=== PATIENT | female | born 1980 | race African-American/Black ===

== ENCOUNTER → 2016-10-26 | Outpatient (CLI) | payer OTHER ==
[2016-07-31 18:01] VITALS: BP 111/71
--- NOTE | 2016-10-27 07:49 | US ---
HISTORY: Bilateral axillary masses Study: Ultrasound axial Iae Comparison: None Technique: Multiple grayscale sonographic images were obtained. Findings: Imaging was focused to the right than left axilla. In the right axilla there is an ovoid, slightly l obular, hyperechoic mass measuring 2.3 by 4.3 by 4.8 centimeters peer E in the left axilla there is an oblong slightly lobular slightly hyperechoic mass measuring 2.5 x 3.6 x 4.2 centimeters. These ma sses could represent lipoma or enlarged lymph nodes. Other diagnoses are possible. Clinical correlat ion should determine the need for tissue sampling. Chest CT may be of further diagnostic value. IMPRESSION: Bilateral axillary masses as described above which may represent adenopathy or lipoma 's however oth er diagnoses are possible. See recommendation as above Reported By:
== END ==
LOC: RAD 09:28
PROVIDERS: ATTEND Student in an Organized Health Care Education/Training Program
DX: L02.411 Cutaneous abscess of right axilla (principal); L02.412 Cutaneous abscess of left axilla

== ENCOUNTER → 2016-11-01 | Day surgery (SDC) | payer OTHER ==
[~2016-11-01] MED LIST: ANCEF VIAL 1 GM ONE; DIPRIVAN VIAL ONE; FENTANYL INJ 100 mcg ONE; LR 1000 ML IV 1,000 ML IV ONE; MARCAINE 0.25% WITH EPI IJ ONE; NS 50 ML IV + SPIKE MINIBAG* 50 ML IV ONE; NS IRRIGATION 1000 ML 1,000 ML IR ONE; VERSED ONE; XYLOCAINE-MPF 1% ONE
[2016-11-01 09:51] LABS: SERUM PREGNANCY TEST, QUAL NEGATIVE <10 mIU/mL
[2016-11-01 13:56] VITALS: BP 106/64
== END | disposition home or self-care (01) | DRG 572 ==
LOC: SURG1 07:35
PROVIDERS: ATTEND Student in an Organized Health Care Education/Training Program
PROC: 0HB8XZZ Excision of Buttock Skin, External Approach (ICD-10-PCS; principal; 2016-11-01 08:30)
DX: D17.79 Benign lipomatous neoplasm of other sites (principal)
CPT/HCPCS: 36415; 84703; A4222; S0020; J0690; J2250; J3010; J3490; J7120

== ENCOUNTER → 2016-11-13 | Outpatient (CLI) | payer OTHER ==
[2016-11-01 13:56] VITALS: BP 106/64
--- NOTE | 2016-11-13 16:42 | CT ---
STUDY: CT PARANASAL SINUSES WITHOUT CONTRAST HISTORY: Sinusitis. Right eye redness and pressure. Comparison: None. Technique: Multiple axial images of the paranasal sinuses were obtained without the administration o f IV contrast. Coronal and sagittal reformats were performed and reviewed. Automated exposure contr ol (AEC) was utilized to adjust the MA and/or kV. Findings: Axial images: Both maxillary sinuses, the sphenoid sinus, ethmoid air cells, frontal recesses, and f rontal sinus are predominately clear. No air-fluid levels are identified. There is no evidence of os teoneogenesis. The retro antral fat is clear. The nasal cavity is within normal limits. There is christianne al septal deviation to the left. The nasal bone is intact. Both orbits are normal in appearance. The re is no evidence of periorbital or intraconal fat stranding. Reformatted images: The ethmoid roofs are slightly higher on the left than the right. The lamina pap yracea is intact bilaterally. There is no evidence of orbital blowout. The ostiomeatal units are pre dominantly clear. No signficant odontogenic abnormality is identified. Mastoid air cells and middle ear cavities are predominately clear. IMPRESSION: 1. No evidence of acute or chronic sinusitis at this time. 2. Normal appearing mastoid air cells and middle ear cavities bilaterally. Reported By:
== END ==
LOC: RAD 15:02
PROVIDERS: ATTEND Otolaryngology
DX: J32.8 Other chronic sinusitis (principal)
CPT/HCPCS: 70486

== ENCOUNTER 2017-03-15 15:45 | Emergency (ER) | payer OTHER ==
[2017-03-15 15:59] VITALS: BP 122/75; BMI 29.5
--- NOTE | 2017-03-15 16:26 | DR.CP ---
HPI - Time Seen Time seen: 16:20 - PCP Primary Care Physician: LISETTE SAUNDERS, - Complaint Chief Complaint Doctor Comments: Patient diagnosed with reflex sympathetic dystrophy. She was seen by physician and was given lumbar injections yesterday now c/o of chest wall pain Chief Complaint:: PT C/O CHEST PAINS THAT STARTED LASTNIGHT OFF AND ON MID STERNUM... - Source History Provided: Patient - Mode of Arrival Mode of Arrival: Ambulatory - Timing Onset of Chief Complaint: 03/14/17 - Location Chest Pain Radiation Location: None - Associated Signs and Symptoms Associated Signs and Symptoms: Shortness of Breath PMH - PMH Past Medical History: No Past Medical History: Headaches Past Surgical History: Yes Surgical History: Tonsillectomy Past Surgical History Comment: LYPOMA REMOVED . - Family History History of Family Medical Conditions: No Family Medical History: Hypertension - Social History Does patient currently use any type of tobacco product: No Have you used tobacco products in the last 12 months: No Type of Tobacco Use: None Does any household member use tobacco: No Alcohol Use: None Do you use any recreational Drugs:: No Lives With: Family Lives Where: Home - infectious screening In the last 2 months have you had wt loss of >10#?: NO Have you had fever, night sweats or hemotysis?: No Have you traveled outside the country in the last 6 months?: No Isolation: Standard ROS - Review of Systems Constitutional: negative: Diaphoresis Eyes: No Symptoms Reported ENTM: No Symptoms Reported Respiratoy: No Symptoms Reported Cardiovascular: No Symptoms Reported Gastrointestinal/Abdominal: No Symptoms Reported Genitourinary: No Symptoms Reported Neurological: No Symptoms Reported Musculoskeletal: No Symptoms Reported Integumentary: No Symptoms Reported Hematologic/Lymphatic: No Symptoms Reported Endocrine: No Symptoms Reported Psychiatric: No Symptoms Reported All Other Systems: Reviewed and Negative PE - Vitals Vitals: Temperature 98.5 F Pulse Rate 122 Respiratory Rate 18 Blood Pressure [Right Arm] 111/71 Blood Pressure 122/75 O2 Sat by Pulse Oximetry 99 - General Limitations: No Limitations General Appearance: Alert, In No Apparent Distress - Head Head Exam: Normal Inspection, Atraumatic - Eyes Eye exam: Normal Appearance, PERRL - ENT ENT Exam: Normal Exam - Chest Chest Inspection: Normal Inspection - Respiratory Respiratory Exam: Normal Lung Sounds Bilat Respiratory Exam: Bilateral Clear to Auscultation - Cardiovascular Cardiovascular Exam: Regular Rate, Normal Rhythm Pulse: Normal, Radial Edema: Normal - Abdominal Exam Abdominal Exam: Normal Inspection Abdominal Tenderness: negative: RUQ, RLQ, LUQ, LLQ, Epigastrium, Suprapubic, Diffuse, Mild, Moderate, Severe, Other - Extremities Extremities Exam: Normal Inspection - Back Back Exam: Tenderness - Neurologic Neurological Exam: Alert, Oriented X3, CN II-XII Intact - Psychiatric Psychiatric Exam: Normal Affect, Normal Mood - Skin Skin Exam: Warm, Dry, Intact ROR - Labs Reviewed Result Diagrams: 03/15/17 16:48 03/15/17 16:48 Laboratory: WBC 10.0 X10^3/uL (3.6-10.0) 03/15/17 16:48 RBC 4.46 X10^6/uL (3.5-5.4) 03/15/17 16:48 Hgb 13.0 g/dL (12.0-16.0) 03/15/17 16:48 Hct 38.7 % (36.0-47.0) 03/15/17 16:48 MCV 86.7 fL (80.0-100.0) 03/15/17 16:48 MCH 29.2 pg (27.0-34.0) 03/15/17 16:48 MCHC 33.6 g/dL (33.0-35.0) 03/15/17 16:48 RDW 14.0 % (11.6-16.5) 03/15/17 16:48 Plt Count 325 X10^3/uL (150.0-450.0) 03/15/17 16:48 MPV 7.6 fL (7.4-11.0) 03/15/17 16:48 Neut % 80.2 % (42.0-75.0) H 03/15/17 16:48 Lymph % 12.6 % (21.0-51.0) L 03/15/17 16:48 Sunflower % 6.3 % (0.0-13.0) 03/15/17 16:48 Eos % 0.6 % (0.9-2.9) L 03/15/17 16:48 Baso % 0.3 % (0.2-1.0) 03/15/17 16:48 Neut # 8.0 x10^3/uL (2.2-4.8) H 03/15/17 16:48 Lymph # 1.3 X10^3/uL (1.3-2.9) 03/15/17 16:48 Sunflower # 0.6 x10^3/uL (0.3-0.8) 03/15/17 16:48 Eos # 0.1 x10^3/uL (0.0-0.2) 03/15/17 16:48 Baso # 0.0 X10^3/uL (0.0-0.1) 03/15/17 16:48 Absolute Nucleated RBC 0.0 /100WBC 03/15/17 16:48 Sodium 141 mmol/L (136-145) 03/15/17 16:48 Corrected Sodium TNP 03/15/17 16:48 Potassium 3.8 mmol/L (3.5-5.1) 03/15/17 16:48 Chloride 106 mmol/L (98-107) 03/15/17 16:48 Carbon Dioxide 28.4 mmol/L (21-32) 03/15/17 16:48 BUN 7 mg/dL (7-18) 03/15/17 16:48 Creatinine 0.97 mg/dL (0.55-1.02) 03/15/17 16:48 Est GFR (MDRD) Af Amer > 60 (>60) 03/15/17 16:48 Est GFR (MDRD) Non-Af > 60 (>60) 03/15/17 16:48 Glucose 107 mg/dL (65-99) H 03/15/17 16:48 Calcium 9.7 mg/dL (8.5-10.1) 03/15/17 16:48 Corrected Calcium TNP 03/15/17 16:48 Total Bilirubin 0.40 mg/dL (0.2-1.0) 03/15/17 16:48 AST 13 Units/L (15-37) L 03/15/17 16:48 ALT 22 Units/L (12-78) 03/15/17 16:48 Alkaline Phosphatase 55 Units/L (46-116) 03/15/17 16:48 Creatine Kinase 94 Units/L (26-192) 03/15/17 16:27 CK-MB (CK-2) < 1.0 ng/mL (0-4.0) 03/15/17 16:27 CK/CKMB % Calc 1.1 % (<4) 03/15/17 16:27 Troponin I < 0.02 ng/mL (0-1.5) 03/15/17 16:27 Total Protein 8.1 g/dL (6.4-8.2) 03/15/17 16:48 Albumin 3.7 g/dL (3.4-5.0) 03/15/17 16:48 Globulin 4.4 g/dL (2.5-4.5) 03/15/17 16:48 Albumin/Globulin Ratio 0.8 Ratio (1.1-2.1) L 03/15/17 16:48 - Other Results Comments: cardiacs negative - XRAY XRAY Interpreted by: Radiologist (chest: normal) - Diagnosis Discharge Problem: Reflex sympathetic dystrophy of both upper extremities - Discharge Plan Condition: Stable - Follow ups/Referrals Follow ups/Referrals: JACINTA SAUNDERS [Primary Care Provider] - 3 days - Instructions
[2017-03-15 16:54] LABS: BASOPHILS % (AUTO) 0.3 % (0.2-1.0); EOSINOPHILS # (AUTO) 0.1 x10^3/uL (0.0-0.2); EOSINOPHILS % (AUTO) 0.6 % (0.9-2.9); HEMATOCRIT 38.7 % (36.0-47.0); LYMPHOCYTES # (AUTO) 1.3 X10^3/uL (1.3-2.9); LYMPHOCYTES % (AUTO) 12.6 % (21.0-51.0); MEAN CORPUSCULAR HEMOGLOBIN 29.2 pg (27.0-34.0); MEAN CORPUSCULAR HGB CONC 33.6 g/dL (33.0-35.0); MEAN CORPUSCULAR VOLUME 86.7 fL (80.0-100.0); MEAN PLATELET VOLUME 7.6 fL (7.4-11.0); MONOCYTES # (AUTO) 0.6 x10^3/uL (0.3-0.8); MONOCYTES % (AUTO) 6.3 % (0.0-13.0); NEUTROPHILS % (AUTO) 80.2 % (42.0-75.0); PLATELET COUNT 325 X10^3/uL (150.0-450.0); RED BLOOD COUNT 4.46 X10^6/uL (3.5-5.4)
[2017-03-15 17:09] LABS: ALANINE AMINOTRANSFERASE 22 Units/L (12-78); ALBUMIN 3.7 g/dL (3.4-5.0); ALKALINE PHOSPHATASE 55 Units/L (46-116); ASPARTATE AMINO TRANSFERASE 13 Units/L (15-37); BLOOD UREA NITROGEN 7 mg/dL (7-18); CALCIUM 9.7 mg/dL (8.5-10.1); CARBON DIOXIDE 28.4 mmol/L (21-32); CHLORIDE 106 mmol/L (98-107); CREATININE 0.97 mg/dL (0.55-1.02); SODIUM 141 mmol/L (136-145); TOTAL PROTEIN 8.1 g/dL (6.4-8.2); eGFR BLACK RACES > 60 (>60); eGFR NON BLACK RACES > 60 (>60)
[2017-03-15 18:12] LABS: CKMB % 1.1 % (<4); CREATINE KINASE 94 Units/L (26-192); CREATINE KINASE MB < 1.0 ng/mL (0-4.0); TROPONIN I < 0.02 ng/mL (0-1.5)
--- NOTE | 2017-03-15 18:27 | RAD ---
HISTORY: 37-year-old female with chest pain. Study: Frontal view of the chest. Comparison: Chest radiograph July 31, 2016 Findings: The trachea is midline. The cardiac silhouette is unremarkable. The lungs are clear without focal c onsolidation, effusion or pneumothorax. Soft tissues are unremarkable. Osseous structures are unrema rkable. IMPRESSION: 1. No acute cardiopulmonary disease. Reported By:
== END 2017-03-15 18:43 | disposition home or self-care (01) ==
LOC: ER 16:16
DX: G90.50 Complex regional pain syndrome I, unspecified (principal)
CPT/HCPCS: 36415; 71010; 80053; 82550; 82553; 84484; 85025; 99283

== ENCOUNTER 2017-07-12 18:11 | Emergency (ER) | payer OTHER ==
[2017-07-12 18:26] VITALS: BP 128/80; BMI 30.2
--- NOTE | 2017-07-12 19:10 | DR.GENAD ---
HPI - PCP Primary Care Physician: aleida - Complaint/Symptoms Chief Complaint Doctors Comments: Patient presents with influenza like symptoms for a couple of days. She denies diarrhea or vomiting. Chief Complaint:: pt states" my throat hurts headache and i'm having chills and i feel like i'm short of breath" - Source History Provided: Patient - Mode of Arrival Mode of Arrival: Ambulatory - Timing Onset of Chief Complaint: 07/10/17 PMH - PMH Past Medical History: Yes Past Medical History: Headaches Past Medical History Comment: rsd lt arm Past Surgical History: Yes Surgical History: Tonsillectomy - Family History History of Family Medical Conditions: Yes Family Medical History: Hypertension - Social History Type of Tobacco Use: None Does any household member use tobacco: No Do you use any recreational Drugs:: No Lives With: Family Lives Where: Home - infectious screening In the last 2 months have you had wt loss of >10#?: NO Have you had fever, night sweats or hemotysis?: No Have you traveled outside the country in the last 6 months?: No Isolation: Standard ROS - Review of Systems Eyes: No Symptoms Reported ENTM: No Symptoms Reported Respiratoy: No Symptoms Reported Cardiovascular: No Symptoms Reported Gastrointestinal/Abdominal: No Symptoms Reported Genitourinary: No Symptoms Reported Neurological: No Symptoms Reported Musculoskeletal: No Symptoms Reported Integumentary: No Symptoms Reported Hematologic/Lymphatic: No Symptoms Reported Endocrine: No Symptoms Reported Psychiatric: No Symptoms Reported All Other Systems: Reviewed and Negative PE - Vital Signs Vitals: Temperature 98.2 F Pulse Rate 98 Respiratory Rate 16 Blood Pressure [Right Arm] 111/71 Blood Pressure 128/80 O2 Sat by Pulse Oximetry 100 - General Limitations: No Limitations General Appearance: Alert - Head Head Exam: Normal Inspection, Atraumatic - Eyes Eye exam: Normal Appearance, PERRL, EOMI - ENT ENT Exam: Normal Exam External Ear Exam: Normal External Inspection TM/Canal Exam: Bilateral Normal Nose Exam: Normal Nose Exam Mouth Exam: Normal Inspection - Neck Neck Exam: Normal Inspection, Full ROM - Chest Chest Inspection: Normal Inspection - Respiratory Respiratory Exam: Normal Lung Sounds Bilat Respiratory Exam: Bilateral Clear to Auscultation - Cardiovascular Cardiovascular Exam: Regular Rate, Normal Rhythm - Abdominal Exam Abdominal Exam: Normal Inspection Abdominal Tenderness: negative: RUQ, RLQ, LUQ, LLQ, Epigastrium, Suprapubic, Diffuse, Mild, Moderate, Severe, Other - Extremities Extremities Exam: Normal Inspection, Full ROM - Back Back Exam: Normal Inspection - Neurologic Neurological Exam: Alert, Oriented X3, CN II-XII Intact - Psychiatric Psychiatric Exam: Normal Affect - Skin Skin Exam: Warm, Dry, Intact ROR - Labs Reviewed Laboratory: Streptococcus Screen Negative (NEGATIVE) 07/12/17 20:04 - Diagnosis Discharge Problem: Influenza A - Discharge Plan Condition: Stable Prescriptions: Ibuprofen [MOTRIN TAB 800 MG *] 800 mg PO BID PRN #30 tab PRN Reason: Pain/Inflammation Ibuprofen 800 mg PO TID PRN #30 tablet PRN Reason: Pain/Inflammation Oseltamivir Phosphate [Tamiflu] 75 mg PO BID #10 cap - Follow ups/Referrals Follow ups/Referrals: JACINTA SAUNDERS [Primary Care Provider] - 3 days - Instructions Instructions: Influenza, Adult, [id number]
[2017-07-12] MEDS ORDERED: MOTRIN TAB 800 MG PO ONE ×2 (19:58→20:00)
[2017-07-12] MEDS ORDERED: TAMIFLU PO ONE ×2 (19:59→20:00)
== END 2017-07-12 20:39 | disposition home or self-care (01) ==
LOC: ER 18:38
DX: J11.1 Influenza due to unidentified influenza virus with other respiratory manifestations (principal)
CPT/HCPCS: 87070; 87880; 99282; 99283; G9035

== ENCOUNTER → 2017-10-12 | Outpatient (CLI) | payer OTHER ==
--- NOTE | 2017-10-12 11:48 | US ---
Indication: Palpable abnormalities along the axillary regions. Exam: Soft tissue ultrasound both axillary regions Technique: Transverse and longitudinal grayscale color Doppler images were obtained of the palpable a bnormalities in both axillary regions. Findings: There is minimal heterogeneity in the soft tissues along the axillary regions bilaterally. No cystic or solid lesions are seen. Impression: No sonographic abnormality seen in the axillary regions bilaterally. Reported By:
== END ==
LOC: RAD 11:06
PROVIDERS: ATTEND Nurse Practitioner Family
DX: R22.2 Localized swelling, mass and lump, trunk (principal)
CPT/HCPCS: 76882

== ENCOUNTER 2017-10-14 14:27 | Emergency (ER) | payer OTHER ==
[2017-10-14 14:41] VITALS: BP 121/64
[2017-10-14] MEDS ORDERED: NEURONTIN CAP 300 MG PO ONE (14:57)
--- NOTE | 2017-10-14 14:59 | DR.EXTPAIN ---
HPI - Time seen Time seen: 14:47 - PCP Primary Care Physician: abel shin - Complaint/Symptoms Chief Complaint:: pt stated she had some bumps on her upper back 4 days ago and now they are on her left arm and spreading. - Nurses notes reviewed Nurses Notes Review: Yes - Source History Provided: Patient - Mode of arrival Mode of Arrival: Ambulatory - Timing Onset of Chief Complaint: 10/11/17 PMH - PMH Past Medical History: Yes Past Medical History: Headaches Past Medical History Comment: rsd in left arm Past Surgical History: Yes Surgical History: Tonsillectomy - Family History History of Family Medical Conditions: Yes Family Medical History: Hypertension - Social History Does patient currently use any type of tobacco product: No Have you used tobacco products in the last 12 months: No Type of Tobacco Use: None Does any household member use tobacco: No Alcohol Use: None Do you use any recreational Drugs:: No Lives With: Family Lives Where: Home - infectious screening In the last 2 months have you had wt loss of >10#?: NO Have you had fever, night sweats or hemotysis?: No Have you traveled outside the country in the last 6 months?: No Isolation: Standard ROS - Review of Systems Constitutional: No Symptoms Reported Eyes: No Symptoms Reported ENTM: No Symptoms Reported Respiratoy: No Symptoms Reported Cardiovascular: No Symptoms Reported Gastrointestinal/Abdominal: No Symptoms Reported Genitourinary: No Symptoms Reported Musculoskeletal: No Symptoms Reported Integumentary: Rash (upper back and Lt. arm), Itching (upper back and lt. arm) Hematologic/Lymphatic: No Symptoms Reported Endocrine: No Symptoms Reported Psychiatric: No Symptoms Reported All Other Systems: Reviewed and Negative PE - Vital Signs Vitals: Temperature 98.9 F Pulse Rate 93 Respiratory Rate 16 Blood Pressure [Right Arm] 111/71 Blood Pressure 121/64 O2 Sat by Pulse Oximetry 96 - General Limitations: No Limitations General Appearance: Alert, In No Apparent Distress - Head Head Exam: Normal Inspection - Eyes Eye exam: Normal Appearance - ENT ENT Exam: Normal Exam - Neck Neck Exam: Normal Inspection - Chest Chest Inspection: Normal Inspection - Respiratory Respiratory Exam: Normal Lung Sounds Bilat - Cardiovascular Cardiovascular Exam: Regular Rate, Normal Rhythm, +S1, +S2 - Abdominal Exam Abdominal Exam: Normal Inspection, Normal Bowel Sounds, Soft - Extremities Extremities Exam: Normal Inspection - Back Back Exam: Normal Inspection, Full ROM - Neurological Neurological Exam: Alert, Oriented X3, CN II-XII Intact - Psychiatric Psychiatric Exam: Normal Affect, Normal Mood - Skin Skin Exam: Warm Type of Lesion: Rash Distribution: Other (clustered in midline on upper back at about T7 and other location is on lt. upper arm, close to axilla ) Description: Vesicular - Diagnosis Discharge Problem: Herpes zoster - Discharge Plan Disposition: 01 HOME, SELF-CARE Condition: Stable - Follow ups/Referrals Follow ups/Referrals: JACINTA SHIN [Primary Care Provider] - 3 days - Instructions Instructions: Shingles, [id number]
[2017-10-14] MEDS ORDERED: VALTREX TAB 1 GM PO ONE ×2 (15:02→15:05)
== END 2017-10-14 15:27 | disposition home or self-care (01) ==
LOC: ER 14:37
DX: B02.9 Zoster without complications (principal)
CPT/HCPCS: 99282